=== PATIENT | female | born 1985 | race Caucasian/White ===

== ENCOUNTER 2020-01-08 06:10 | Day surgery (SDC) | payer OTHER ==
[~2020-01-08] VITALS: Ht 165.1 cm; Wt 110.2 kg
[2020-01-08 06:38] VITALS: BP 132/75
[2020-01-08 10:26] VITALS: BP 124/82
== END 2020-01-08 10:20 | disposition home or self-care (01) ==
LOC: DS 06:10 → OR 07:30 → DS 10:20
PROVIDERS: ATTEND Obstetrics & Gynecology
DX: N87.1 Moderate cervical dysplasia (principal); J45.909 Unspecified asthma, uncomplicated; F41.9 Anxiety disorder, unspecified; G43.909 Migraine, unspecified, not intractable, without status migrainosus; E66.3 Overweight; Z68.41 Body mass index [BMI] 40.0-44.9, adult; Z20.828 Contact with and (suspected) exposure to other viral communicable diseases
CPT/HCPCS: 88344; J2405; J2710; J3010; J3490; J7120; U0003